=== PATIENT | female | born 1985 | race Caucasian/White ===

== ENCOUNTER 2020-04-28 21:00 | Emergency (ER) | payer MEDICAID, OTHER ==
[~2020-04-28] VITALS: Ht 165.1 cm; Wt 67.0 kg
[2020-04-28] MEDS ORDERED: ONDANSETRON 4MG ODT PO ONE (21:45)
[2020-04-28] MEDS ORDERED: PROCHLORPERAZINE 10MG/2ML VIAL IM ONE (22:45)
[2020-04-28] MEDS ORDERED: KETOROLAC 60MG/2ML VIAL IM ONE (22:45)
[2020-04-28 22:53] VITALS: BP 112/76
== END 2020-04-28 23:42 | disposition home or self-care (01) ==
LOC: ER 21:00
DX: G44.209 Tension-type headache, unspecified, not intractable (principal)
CPT/HCPCS: 81025; 96372; 99284; J0780; J1885; Q0162